=== PATIENT | female | born 1995 | race Caucasian/White ===

== ENCOUNTER 2016-06-15 16:19 | Emergency (ER) | payer MEDICAID ==
[2016-06-15 16:32] VITALS: TEMP 98.4
--- NOTE | 2016-06-15 17:53 | EDPHY ---
H & P Smoking Status: Never smoked Time Seen by Provider: 06/15/16 17:21 HPI/ROS: CHIEF COMPLAINT: Sore throat x3 days HISTORY OF PRESENT ILLNESS: 20-year-old immunocompetent female complaining of 3 days of sore throat, fever, myalgias, tonsillar exudate, positive adenopathy. No trismus no drooling. No chest pain. No cough. No headache. No nuchal rigidity. REVIEW OF SYSTEMS: A ten point review of systems was performed and is negative with the exception of the items mentioned in the HPI PAST MEDICAL & SURGICAL HISTORY: No pertinent medical or surgical history SOCIAL HISTORY: Nonsmoker PHYSICAL EXAM (Prior to examination, patient consented to physical exam, hands were washed and my usual and customary physical exam procedures followed) 1) GENERAL: Well-developed, well-nourished, alert and oriented. Appears Nontoxic 2) HEAD: Normocephalic, atraumatic 3) HEENT: Pupils equal, round, reactive to light bilaterally. Sclera anicteric. Oropharynx: No trismus no drooling. Bilateral tonsils are symmetrical, enlarged, exudative, uvula midline, no pointing. Ears bilaterally with normal tympanic membranes. 4) NECK: Full range of motion, no meningeal signs. positive submandibular adenopathy which is tender 5) LUNGS: Clear auscultation bilaterally, no wheezes, no rhonchi, no retractions. 6) HEART: Regular rate and rhythm, no murmur, no heave, no gallop. 7) ABDOMEN: No guarding, no rebound, no focal tenderness, negative McBurney's, negative Bain's, negative Rovsing's, negative peritoneal sign, 8) MUSCULOSKELETAL: Moving all extremities, no focal areas of tenderness, no obvious trauma. No peripheral edema or discoloration. 9) BACK: No CVA tenderness,. 10) SKIN: No rash, no petechiae. 11) Psychiatric: Patient is oriented X 3, there is no agitation. DIFFERENTIAL DIAGNOSIS: in no particular order including but not limited to peritonsillar abscess, strep pharyngitis, mononucleosis (Alejandro,Santi Leida) Constitutional: Initial Vital Signs Temperature (C) 36.9 C 06/15/16 16:29 Heart Rate 97 06/15/16 16:29 Respiratory Rate 16 06/15/16 16:29 Blood Pressure 122/76 H 06/15/16 16:29 O2 Sat (%) 100 06/15/16 16:29 O2 Delivery Mode Room Air Allergies/Adverse Reactions: No Known Allergies Allergy (Unverified 06/15/16 16:29) Home Medications: Medication Instructions Recorded Amoxicillin/Clavulanate Pot 875 mg PO BID #14 tab 06/15/16 [Augmentin 875 mg tab] methylPREDNISolone [Medrol Dose 4 mg PO DAILY #1 ea 06/15/16 [place]] MDM/Departure - MDM ED Course/Re-evaluation: High clinical suspicion for strep pharyngitis. Doubt peritonsillar abscess. Recommended empiric treatment. Inquired about prior adverse history to steroids and/or mental health disease history and she denies these. Plan will be Augmentin, Solu-Medrol, follow up with ENT. Usual customary peritonsillar abscess and pharyngitis precautions provided. She feels comfortable being discharged. (Santi Allen) The patient was evaluated and managed by the physician speech language assistant. I have reviewed this chart and I agree with the findings and plan of care as documented , as indicated by my signature. I am the secondary supervising physician. ( Olivia Martinez) - Depart Disposition: Home, Routine, Self-Care Clinical Impression: Acute streptococcal pharyngitis Condition: Good Instructions: Strep Throat (ED) Additional Instructions: Return to the ER immediately if you cannot swallow, have drooling, fevers, neck stiffness, cannot open your jaw, or any other symptoms that concern you. Prescriptions: Amoxicillin/Clavulanate Pot [Augmentin 875 mg tab] 875 mg PO BID #14 tab methylPREDNISolone [Medrol Dose [place]] 4 mg PO DAILY #1 ea Referrals: Ty Jin MD [Medical Doctor] - 2-3 days, call for appt.
[2016-06-15 17:59] VITALS: BP 118/62; PULSE 82; RESP 18; O2SAT 97
== END 2016-06-15 17:59 | disposition home or self-care (01) ==
DX: J02.0 Streptococcal pharyngitis (principal)